=== PATIENT | female | born 1945 | race Two or more races ===

== ENCOUNTER 2023-05-24 04:30 | Day surgery (SDC) | payer OTHER, MEDICARE ==
[2023-05-23 10:42] VITALS: BMI 32.1
[2023-05-24] MEDS ORDERED: MIDAZOLAM HCL 2 MG/2 ML SINGLE DOSE VIAL ONE (08:14)
[2023-05-24 09:12] VITALS: TEMP 98.2
[2023-05-24 09:58] VITALS: RESP 18
[2023-05-24 10:16] VITALS: BP 122/52; PULSE 67
== END 2023-05-24 10:35 | disposition home or self-care (01) ==
LOC: JASU-ENDO 04:30
PROVIDERS: ATTEND Internal Medicine Gastroenterology
PROC: 0DB68ZX Excision of Stomach, Via Natural or Artificial Opening Endoscopic, Diagnostic (ICD-10-PCS; 2023-05-24)
PROC: 0DBP8ZX Excision of Rectum, Via Natural or Artificial Opening Endoscopic, Diagnostic (ICD-10-PCS; principal; 2023-05-24 08:30)
DX: Z12.11 Encounter for screening for malignant neoplasm of colon (principal); Z80.0 Family history of malignant neoplasm of digestive organs; K62.1 Rectal polyp; K29.50 Unspecified chronic gastritis without bleeding
CPT/HCPCS: 88305-TC; 88342-TC